=== PATIENT | female | born 1940 | race Caucasian/White ===

== ENCOUNTER 2017-07-26 10:37 | Emergency (ER) | payer MEDICARE, OTHER ==
[~2017-07-26] VITALS: Ht 152.4 cm; Wt 80.0 kg
[2017-07-26 10:53] VITALS: BP 185/85
[2017-07-26] MEDS ORDERED: VERAPAMIL240 M1 PO (10:55)
[2017-07-26] MEDS ORDERED: FLEXERIL PO (12:05)
[2017-07-26] MEDS ORDERED: MEDDOSEPAK PO (12:05)
[2017-07-26] MEDS ORDERED: TORADOL PO (12:05)
== END 2017-07-26 12:16 | disposition home or self-care (01) ==
LOC: ED 10:37
DX: S39.012A Strain of muscle, fascia and tendon of lower back, initial encounter (principal); X50.0XXA Overexertion from strenuous movement or load, initial encounter